=== PATIENT | female | born 1980 | race Two or more races ===

== ENCOUNTER 2017-10-09 11:10 | Inpatient (IN) | payer OTHER ==
[2017-10-09] MEDS ORDERED: LABETALOL HCL 20MG INJ (11:22)
[2017-10-09] MEDS ORDERED: MAGNESIUM SULFATE 4 GM/100 ML 100 ML (11:35)
[2017-10-09] MEDS: LABETALOL HCL 20MG INJ IV ×3 (11:40→14:57)
[2017-10-09] MEDS: MAGNESIUM SULFATE 4 GM/100 ML 100 ML IV (11:41)
[2017-10-09] MEDS: LACTATED RINGER'S 1,000 ML IV (11:59)
[2017-10-09] MEDS: MAGNESIUM SULFATE 20 GM/500 ML 500 ML IV ×2 (12:07→23:46)
[2017-10-09 12:16] LABS: ADD MAN DIFF? NO
[2017-10-09 12:18] LABS: BASOPHILS % 0.4 % (0.0-2.0); EOSINOPHILS # 0.1 10^3/ul (0.0-0.5); EOSINOPHILS % 0.6 % (0.0-7.0); HEMATOCRIT 34.3 % (37.0-47.0); HEMOGLOBIN 11.7 g/dl (12.0-16.0); IMMATURE GRANS #M 0.07 10^3/ul; IMMATURE GRANS % (M) 0.7 %; LYMPHOCYTES # 2.4 10^3/ul (0.8-2.9); MEAN CORPUSCULAR HEMOGLOBIN 29.8 pg (29.0-33.0); MEAN CORPUSCULAR HGB CONC 34.1 g/dl (32.0-37.0); MEAN CORPUSCULAR VOLUME 87.3 fl (82.0-101.0); MONOCYTE # 0.6 10^3/ul (0.3-0.9); MONOCYTES % 6.4 % (0.0-11.0); NEUTROPHIL # 6.7 10^3/ul (1.6-7.5); NEUTROPHILS % 67.9 % (39.0-77.0); PLATELET COUNT 188 10^3/UL (140-415); RED BLOOD COUNT 3.93 10^6/ul (4.20-5.40); RED CELL DISTRIBUTION WIDTH 14.1 % (11.5-14.5)
[2017-10-09 12:18] LABS: WHITE BLOOD COUNT 9.8 10^3/ul (4.8-10.8)
[2017-10-09 12:40] LABS: ALANINE AMINOTRANSFERASE 24 IU/L (13-69); ALBUMIN 3.2 g/dl (3.3-4.9); ALBUMIN/GLOBULIN RATIO 1.06; ALKALINE PHOSPHATASE 83 IU/L (42-121); ANION GAP 11 (8-16); ASPARTATE AMINO TRANSFERASE 31 IU/L (15-46); BILIRUBIN,INDIRECT 0.1 mg/dl (0-1.1); BILIRUBIN,TOTAL 0.1 mg/dl (0.2-1.3); BLOOD UREA NITROGEN 19 mg/dl (7-20); CALCIUM 8.8 mg/dl (8.4-10.2); CARBON DIOXIDE 19 mmol/L (21-31); CHLORIDE 111 mmol/L (97-110); CREATININE 0.97 mg/dl (0.44-1.00); GLUCOSE 94 mg/dl (70-220); POTASSIUM 4.7 mmol/L (3.5-5.1); SODIUM 136 mmol/L (135-144); TOTAL PROTEIN 6.2 g/dl (6.1-8.1)
[2017-10-09 13:15] LABS: ADD UMIC YES; UR ASCORBIC ACID NEGATIVE (NEGATIVE); UR BACTERIA FEW /HPF (NONE SEEN); UR BILIRUBIN (Dip) NEGATIVE (NEGATIVE); UR BLOOD (Dip) 1+ mg/dL (NEGATIVE); UR CLARITY SLIGHTLY CLOUDY (CLEAR); UR COLOR YELLOW (YELLOW); UR GLUCOSE (Dip) NEGATIVE (NEGATIVE); UR KETONES (Dip) NEGATIVE (NEGATIVE); UR LEUKOCYTE ESTERASE (Dip) NEGATIVE Leu/ul (NEGATIVE); UR MUCUS MODERATE /HPF (NONE SEEN); UR NITRITE (Dip) NEGATIVE (NEGATIVE); UR RBC 6 /HPF (0-5); UR SPECIFIC GRAVITY (Dip) 1.032 (1.003-1.030); UR SQUAMOUS EPITHELIAL CELL FEW /HPF (FEW); UR TOTAL PROTEIN (Dip) 3+ mg/dl (NEGATIVE); UR UROBILINOGEN (Dip) NEGATIVE (NEGATIVE); UR WBC 7 /HPF (0-5)
[2017-10-09 13:18] LABS: AMPHETAMINE/METHAMPHETAMINE Negative (NEGATIVE); BARBITURATES Negative (NEGATIVE); BENZODIAZEPINES Negative (NEGATIVE); CANNABINOIDS Negative (NEGATIVE); COCAINE Negative (NEGATIVE); OPIATES Negative (NEGATIVE)
[2017-10-09] MEDS: LACTATED RINGER'S 1,000 ML IV* (13:19)
[2017-10-09 13:29] LABS: CREATINE KINASE 85 IU/L (23-200)
[2017-10-09] MEDS: BETAMET NA PHOS/AC(6 MG/ML) 5ML INJ IM (13:29)
[2017-10-09 13:42] LABS: CK INDEX 1.3; CK-MB 1.13 ng/ml (0.0-2.4); TROPONIN-I < 0.010 ng/ml (0.000-0.120)
[2017-10-09] MEDS ORDERED: hydrALAzine 20 MG INJ (14:52)
[2017-10-09] MEDS ORDERED: LABETALOL HCL 20MG INJ IV (15:00)
[2017-10-09] MEDS: NIFEdipine (XL) 30 MG TAB PO (15:00)
[2017-10-09] MEDS: hydrALAzine 20 MG INJ IV (15:27)
[2017-10-09 18:30] LABS: ADD MAN DIFF? NO
[2017-10-09] MEDS ORDERED: CEFAZOLIN 2 GM/50 ML (PMX) 50 ML IV (18:30)
[2017-10-09] MEDS ORDERED: OXYTOCIN 30 UNITS/LR 500 ML IV ×2 (18:30→23:30)
[2017-10-09] MEDS ORDERED: METHYLERGONOVINE 0.2 MG INJ IM (18:30)
[2017-10-09 18:32] LABS: WHITE BLOOD COUNT 16.4 10^3/ul (4.8-10.8)
[2017-10-09 18:32] LABS: BASOPHILS % 0.2 % (0.0-2.0); EOSINOPHILS % 0.1 % (0.0-7.0); HEMATOCRIT 39.3 % (37.0-47.0); HEMOGLOBIN 13.7 g/dl (12.0-16.0); IMMATURE GRANS #M 0.18 10^3/ul; IMMATURE GRANS % (M) 1.1 %; LYMPHOCYTES # 1.4 10^3/ul (0.8-2.9); LYMPHOCYTES % 8.7 % (15.0-51.0); MEAN CORPUSCULAR HEMOGLOBIN 30.5 pg (29.0-33.0); MEAN CORPUSCULAR HGB CONC 34.9 g/dl (32.0-37.0); MEAN CORPUSCULAR VOLUME 87.5 fl (82.0-101.0); MEAN PLATELET VOLUME 11.7 fl (7.4-10.4); MONOCYTE # 0.2 10^3/ul (0.3-0.9); MONOCYTES % 1.4 % (0.0-11.0); NEUTROPHIL # 14.5 10^3/ul (1.6-7.5); NEUTROPHILS % 88.5 % (39.0-77.0); PLATELET COUNT 197 10^3/UL (140-415); RED BLOOD COUNT 4.49 10^6/ul (4.20-5.40)
[2017-10-09 18:50] LABS: ALANINE AMINOTRANSFERASE 52 IU/L (13-69); ALBUMIN 3.4 g/dl (3.3-4.9); ALBUMIN/GLOBULIN RATIO 1.06; ALKALINE PHOSPHATASE 101 IU/L (42-121); ANION GAP 14 (8-16); ASPARTATE AMINO TRANSFERASE 79 IU/L (15-46); BILIRUBIN,INDIRECT 0.4 mg/dl (0-1.1); BILIRUBIN,TOTAL 0.4 mg/dl (0.2-1.3); BLOOD UREA NITROGEN 20 mg/dl (7-20); CALCIUM 8.7 mg/dl (8.4-10.2); CARBON DIOXIDE 17 mmol/L (21-31); CHLORIDE 108 mmol/L (97-110); CREATININE 0.97 mg/dl (0.44-1.00); GLUCOSE 123 mg/dl (70-220); POTASSIUM 4.6 mmol/L (3.5-5.1); SODIUM 134 mmol/L (135-144); TOTAL PROTEIN 6.6 g/dl (6.1-8.1); URIC ACID 8.3 mg/dl (3.1-7.9)
[2017-10-09 18:51] LABS: INR 0.82; PROTIME 11.3 Sec (11.9-14.9); PT RATIO 0.9
[2017-10-09 18:51] LABS: MAGNESIUM 6.3 mg/dl (1.7-2.5)
[2017-10-09 18:54] LABS: ADD UMIC YES; UR ASCORBIC ACID NEGATIVE (NEGATIVE); UR BILIRUBIN (Dip) NEGATIVE (NEGATIVE); UR BLOOD (Dip) 1+ mg/dL (NEGATIVE); UR CLARITY SLIGHTLY CLOUDY (CLEAR); UR COLOR YELLOW (YELLOW); UR GLUCOSE (Dip) NEGATIVE (NEGATIVE); UR HYALINE CAST FEW /HPF (NONE SEEN); UR KETONES (Dip) NEGATIVE (NEGATIVE); UR LEUKOCYTE ESTERASE (Dip) NEGATIVE Leu/ul (NEGATIVE); UR MUCUS MODERATE /HPF (NONE SEEN); UR NITRITE (Dip) NEGATIVE (NEGATIVE); UR RBC 4 /HPF (0-5); UR SPECIFIC GRAVITY (Dip) 1.038 (1.003-1.030); UR TOTAL PROTEIN (Dip) 3+ mg/dl (NEGATIVE); UR UROBILINOGEN (Dip) NEGATIVE (NEGATIVE); UR WBC 4 /HPF (0-5)
[2017-10-09] MEDS ORDERED: morphine SULFATE/PF (10 MG/10 ML) INJ (20:00)
[2017-10-09] MEDS ORDERED: BUPIVACAINE 0.75%/DEXT (SPINAL) 2 ML INJ (20:00)
[2017-10-09] MEDS ORDERED: KETOROLAC 30 MG INJ (20:00)
[2017-10-09] MEDS ORDERED: ONDANSETRON 4 MG INJ ×2 (20:00→21:43)
[2017-10-09] MEDS ORDERED: OXYTOCIN 30 UNITS/LR 500 ML BAG IV (20:00)
[2017-10-09] MEDS ORDERED: METOCLOPRAMIDE 10 MG INJ (20:00)
[2017-10-09] MEDS ORDERED: CITRIC ACID/SODIUM CITRATE 15 ML CUP (20:06)
[2017-10-09 21:16] LABS: HEPATITIS B SURFACE ANTIGEN NEGATIVE (NEGATIVE)
[2017-10-09] MEDS: CITRIC ACID/SODIUM CITRATE 15 ML CUP PO (21:29)
[2017-10-09 21:43] LABS: RAPID PLASMA REAGIN NONREACTIVE (NR)
[2017-10-09] MEDS: ONDANSETRON 4 MG INJ IV (21:50)
[2017-10-09] MEDS ORDERED: morphine 2 MG INJ IV ×3 (23:30)
[2017-10-09] MEDS ORDERED: LANOLIN 7 GM TUBE TOP (23:30)
[2017-10-09] MEDS ORDERED: ONDANSETRON 4 MG INJ IV (23:30)
[2017-10-09] MEDS ORDERED: CARBOPROST 250 MCG INJ IM (23:30)
[2017-10-09] MEDS ORDERED: NALOXONE (0.4 MG/ML) INJ IV (23:30)
[2017-10-09] MEDS ORDERED: MISOPROSTOL 200 MCG TAB PR (23:30)
[2017-10-09 23:32] LABS: CBV Base Excess -7.2 mmol/L; CBV COHb 0.6 %; CBV Oxygen Sat 37.5 mmHG; Cord Blood Venous pO2 19.5 mmHG (15.0-45.0); Fraction OxyHgb Cord Venous 36.3 %; MODE ROOM AIR; MetHgb Cord Venous 2.5 %; Sample Type Blood venous; Site CORD
[2017-10-09] MEDS: OXYTOCIN 30 UNITS/LR 500 ML IV (23:51)
[2017-10-09] MEDS: MISOPROSTOL 200 MCG TAB PR (23:53)
[2017-10-09] MEDS: CARBOPROST 250 MCG INJ IM (23:54)
[2017-10-10] MEDS: DIPHENHYDRAMINE 50 MG INJ IV (00:53)
[2017-10-10 01:06] LABS: HIV 1&2 ANTIBODY NEGATIVE (NEGATIVE)
[2017-10-10] MEDS: KETOROLAC 30 MG INJ IV (01:18)
[2017-10-10 01:24] LABS: HEPATITIS B SURFACE ANTIBODY NEGATIVE (NEGATIVE)
[2017-10-10] MEDS ORDERED: BETAMET NA PHOS/AC(6 MG/ML) 5ML INJ IM (01:30)
[2017-10-10 01:46] LABS: MAGNESIUM 7.1 mg/dl (1.7-2.5)
[2017-10-10] MEDS: LACTATED RINGER'S 1,000 ML IV (03:24)
[2017-10-10] MEDS: OXYTOCIN 30 UNITS/LR 500 ML IV (03:24)
[2017-10-10 06:26] LABS: ADD MAN DIFF? NO
[2017-10-10 06:37] LABS: BASOPHILS % 0.1 % (0.0-2.0); HEMATOCRIT 36.2 % (37.0-47.0); HEMOGLOBIN 12.4 g/dl (12.0-16.0); IMMATURE GRANS #M 0.16 10^3/ul; IMMATURE GRANS % (M) 0.8 %; LYMPHOCYTES # 1.9 10^3/ul (0.8-2.9); LYMPHOCYTES % 10.1 % (15.0-51.0); MEAN CORPUSCULAR HGB CONC 34.3 g/dl (32.0-37.0); MEAN CORPUSCULAR VOLUME 90.5 fl (82.0-101.0); MEAN PLATELET VOLUME 11.7 fl (7.4-10.4); MONOCYTE # 0.8 10^3/ul (0.3-0.9); MONOCYTES % 4.2 % (0.0-11.0); NEUTROPHIL # 16.4 10^3/ul (1.6-7.5); NEUTROPHILS % 84.8 % (39.0-77.0); PLATELET COUNT 175 10^3/UL (140-415); RED CELL DISTRIBUTION WIDTH 14.4 % (11.5-14.5)
[2017-10-10 06:37] LABS: WHITE BLOOD COUNT 19.3 10^3/ul (4.8-10.8)
[2017-10-10 06:56] LABS: MAGNESIUM 6.4 mg/dl (1.7-2.5)
[2017-10-10] MEDS: MAGNESIUM SULFATE 20 GM/500 ML 500 ML IV (12:52)
[2017-10-10 13:05] LABS: MAGNESIUM 7.4 mg/dl (1.7-2.5)
[2017-10-10] MEDS: LACTATED RINGER'S 1,000 ML IV* (15:15)
[2017-10-10 18:43] LABS: MAGNESIUM 5.2 mg/dl (1.7-2.5)
[2017-10-10] MEDS: IBUPROFEN 600 MG TAB PO (23:20)
[2017-10-10] MEDS ORDERED: HYDROCODONE/APAP (5/325) TAB PO (23:30)
[2017-10-11] MEDS: IBUPROFEN 600 MG TAB PO ×7 (05:43→23:58)
[2017-10-12] MEDS: IBUPROFEN 600 MG TAB PO (05:54)
[2017-10-12] MEDS: MEASLES,MUMPS,RUBELLA VACCINE INJ SC* (09:00)
[2017-10-12] MEDS: DIPHTH/TET/ACEL PERTUSS (ADULT) 0.5 ML VIAL IM* (09:00)
[2017-10-12] MEDS: LABETALOL 100 MG TAB PO ×2 (16:18→21:00)
[2017-10-12 23:52] LABS: ADD MAN DIFF? NO
[2017-10-12 23:55] LABS: WHITE BLOOD COUNT 13.3 10^3/ul (4.8-10.8)
[2017-10-12 23:55] LABS: BASOPHILS % 0.3 % (0.0-2.0); EOSINOPHILS # 0.1 10^3/ul (0.0-0.5); EOSINOPHILS % 0.9 % (0.0-7.0); HEMATOCRIT 30.6 % (37.0-47.0); HEMOGLOBIN 10.1 g/dl (12.0-16.0); IMMATURE GRANS % (M) 0.8 %; LYMPHOCYTES # 3.9 10^3/ul (0.8-2.9); LYMPHOCYTES % 28.9 % (15.0-51.0); MEAN CORPUSCULAR HEMOGLOBIN 30.7 pg (29.0-33.0); MEAN PLATELET VOLUME 11.8 fl (7.4-10.4); MONOCYTE # 1.2 10^3/ul (0.3-0.9); MONOCYTES % 8.7 % (0.0-11.0); NEUTROPHIL # 8.1 10^3/ul (1.6-7.5); NEUTROPHILS % 60.4 % (39.0-77.0); PLATELET COUNT 144 10^3/UL (140-415); RED BLOOD COUNT 3.29 10^6/ul (4.20-5.40); RED CELL DISTRIBUTION WIDTH 14.6 % (11.5-14.5)
[2017-10-13 00:16] LABS: ALANINE AMINOTRANSFERASE 26 IU/L (13-69); ALBUMIN 2.6 g/dl (3.3-4.9); ALBUMIN/GLOBULIN RATIO 0.86; ALKALINE PHOSPHATASE 66 IU/L (42-121); ANION GAP 12 (8-16); ASPARTATE AMINO TRANSFERASE 23 IU/L (15-46); BILIRUBIN,INDIRECT 0.1 mg/dl (0-1.1); BILIRUBIN,TOTAL 0.1 mg/dl (0.2-1.3); BLOOD UREA NITROGEN 26 mg/dl (7-20); CALCIUM 8.4 mg/dl (8.4-10.2); CARBON DIOXIDE 22 mmol/L (21-31); CHLORIDE 106 mmol/L (97-110); CREATININE 1.09 mg/dl (0.44-1.00); GLUCOSE 99 mg/dl (70-220); POTASSIUM 4.5 mmol/L (3.5-5.1); SODIUM 135 mmol/L (135-144); TOTAL PROTEIN 5.6 g/dl (6.1-8.1)
[2017-10-13] MEDS: IBUPROFEN 600 MG TAB PO ×3 (01:12→18:00)
[2017-10-13] MEDS: LABETALOL 100 MG TAB PO ×2 (04:47→16:03)
== END 2017-10-13 18:30 | disposition home or self-care (01) | DRG 765 ==
LOC: OBT 11:10 → PP1 10-10 02:43 → L-D 11:10 → OBT 11:23 → L-D 11:23
PROC: 10D00Z1 Extraction of Products of Conception, Low, Open Approach (ICD-10-PCS; principal; 2017-10-09 22:30)
DX: O14.14 Severe pre-eclampsia complicating childbirth (principal); O36.5920 Maternal care for other known or suspected poor fetal growth, second trimester, not applicable or unspecified; Z37.0 Single live birth; Z3A.26 26 weeks gestation of pregnancy
CPT/HCPCS: 36415; 76815; 80053; 80307; 81001; 82550; 82553; 82803; 83735; 84484; 84560; 85025; 85610; 85730; 86592; 86703; 86706; 86708; 86709; 86803; 86850; 86900; 86901; 87340; 88307; 90715; 93306; 99464